=== PATIENT | male | born 1980 | race Caucasian/White ===

== ENCOUNTER 2016-06-03 09:55 | Emergency (ER) ==
--- NOTE | 2016-06-03 10:23 | PROVIDER DOCUMENTATION ---
HPI-General Adult - General Source: patient, family - History of Present Illness -Gen Adult Nature of Presenting Problems: Reports sinus congestion and cough x 1 week. Reports chest wall pain upon coughing. Pt reports is a smoker. Denies n,v,f. Reports sinus pain. Location of Pain/Injury: reports: head Quality of Pain: reports: aching Severity: reports: moderate Onset/Duration: reports: 1 week ago Timing: reports: still present Similar Symptoms Previously?: No Recently seen or treated by another doctor?: No <Bridgett Guardado - Last Filed: 06/03/16 11:22> <Rebeka Chao - Last Filed: 06/03/16 12:22> - General Chief Complaint: Cold Symptoms Stated Complaint: SINUS PAIN/COUGH Time Seen by Provider: 06/03/16 10:23 Allergies/Adverse Reactions: Patient Allergies Allergy/AdvReac Type Severity Reaction Status Date / Time No Known Allergies Allergy Verified 06/03/16 10:13 Home Medications: Home Medication List Medication Instructions Recorded Confirmed Last Taken Type Ibuprofen [Motrin] 800 mg PO Q8H PRN PRN #7 tablet 10/03/14 06/03/16 06/02/16 Rx Guaifenesin/Dextromethorphan 10 ml PO BID #120 ml 06/03/16 Unknown Rx [Guaifenesin Dm Syrup] Ibuprofen 800 mg PO BID #20 tablet 06/03/16 Unknown Rx Sulfamethoxazole/Trimethoprim 1 each PO BID #20 tablet 06/03/16 Unknown Rx [Bactrim Ds Tablet] Review of Systems - Adult - REVIEW OF SYSTEMS - ADULT Constitutional: denies: chills, fever, fatique Eyes: reports: no symptoms reported Ears, Nose, Mouth & Throat: reports: sinus problem. denies: ear pain, throat pain Cardiovascular: reports: no symptoms reported Respiratory: reports: cough. denies: shortness of breath, wheezing Gastrointestinal: denies: abdominal pain, diarrhea, nausea Genitourinary: reports: no symptoms reported Musculoskeletal: reports: no symptoms reported Integumentary: reports: no symptoms reported Neurological: reports: no symptoms reported Psychiatric: reports: no symptoms reported Endocrine: reports: no symptoms reported Hematologic/Lymphatic: reports: no symptoms reported Allergic/Immunologic: reports: no symptoms reported All Other Systems: Reviewed and Negative <Bridgett Guardado - Last Filed: 06/03/16 11:22> Past History - Adult - PAST MEDICAL HISTORY-ADULT Review of Records: reports: Nursing Assessment Review, Medications Reviewed Major Childhood Illnesses: reports: denies history Genitourinary: reports: kidney stones - IMMUNIZATION STATUS Childhood Immunizations: See Nurse Assessment Flu Vaccine: See Nurse Assessment - SOCIAL HISTORY Smoking: cigarettes, less than 1 pack/day Provider spent 3-5 mins advising pt. on dangers of tobacco.: Discussed manners to quit use, and f/u contacts for add'l counseling. Substance Use: none/never <Bridgett Guardado - Last Filed: 06/03/16 11:22> - PAST MEDICAL HISTORY-ADULT Major Childhood Illnesses: reports: denies history Cardiovascular: reports: denies history Respiratory: reports: denies history Gastrointestinal: reports: denies history Obstetrical/Gynecological: reports: denies history Genitourinary: reports: kidney stones Musculoskeletal: reports: denies history Neurological: reports: denies history Endocrine/Immune: reports: denies history Other Conditions: reports: denies history - PRIOR SURGERIES/PROCEDURES Surgical/Procedure History: reports: reviewed, not pertinent, other (renal stents) - PRIOR HOSPITALIZATIONS Prior Hospitalizations: reports: for other non-related - IMMUNIZATION STATUS Childhood Immunizations: See Nurse Assessment Flu Vaccine: See Nurse Assessment - FAMILY HISTORY Family History: reviewed, not pertinent <Rebeka Chao - Last Filed: 06/03/16 12:22> Physical Exam-General - PHYSICAL EXAM-ADULT Initial Vital Signs Reviewed: Yes - CONSTITUTIONAL General Appearance: appears well, alert, no apparent distress - EYES Eyes: PERRL/EOMI, pink conjunctivae - HEAD, EARS, NOSE, MOUTH & THROAT HENMT: normocephalic/atraumatic, moist mucous membranes, pharyngeal erythema ( with post-nasal drainage), frontal tenderness, maxillary tenderness. negative: tonsillar exudate - NECK Neck: non-tender, full range of motion, supple. negative: lymphadenopathy - RESPIRATORY Respiratory: chest non-tender, lungs clear, normal breath sounds - CARDIOVASCULAR Cardiovascular: normal peripheral pulses, regular rate, rhythm, no edema - MUSCULOSKELETAL Back Exam: normal inspection, no CVA tenderness, no vertebral tenderness Extremity: normal gait, normal inspection - SKIN Integumentary: normal color, normal turgor, warm/dry - NEUROLOGIC Neurologic: grossly normal, no motor/sensory deficits - PSYCHIATRIC Psych/Mental Status: normal mood/affect, oriented x 3 <Rebeka ChaoLaura - Last Filed: 06/03/16 12:22> Progress - PLAN OF CARE/RESULTS Progress/Plan/Lab Results: Vital Signs Temp Pulse Resp BP Pulse Ox 06/03/16 10:10 98.2 F 80 20 126/80 100 No Known Allergies Allergy (Verified 06/03/16 10:13) Ibuprofen [Motrin] 800 mg PO Q8H PRN PRN #7 tablet 10/03/14 Orders Category Date Time Status CHEST-2 VIEWS [RAD] Stat Exams 06/03/16 11:30 Ordered - XRAY 1 XRAY Study: Chest Impression: Normal XRAY Interpretation: normal per [facility] <TroyWilliam samuelscy JazminLaura - Last Filed: 06/03/16 12:22> Departure <Bridgett Guardado - Last Filed: 06/03/16 11:22> - Departure Time of Disposition Order: 12:18 Certified Medical Emergency: Emergent <JeremieWilliamRebeka M. - Last Filed: 06/03/16 12:22> - Departure DIAGNOSIS: Costochondritis Sinusitis Qualifiers: Sinusitis location: maxillary Chronicity: acute Recurrence: non-recurrent Qualified Code(s): J01.00 - Acute maxillary sinusitis, unspecified Upper respiratory infection Qualifiers: URI type: unspecified URI Qualified Code(s): J06.9 - Acute upper respiratory infection, unspecified Disposition: HOME 01 Condition: Good Additional Instructions: Drink plenty of fluids. ED Follow Up Instructions: You have been treated by a care provider in the Emergency Department. These instructions are being provided to you so you can have an understanding of how to care for yourself upon discharge. Upon discharge from the Emergency Department, you are responsible for making arrangements for follow-up care by a physician of your choice. Take all prescribed medications as directed. Return to the Emergency Department immediately for any new or worsening symptoms. You may call the Physician Referral phone number at [phone] to obtain a list of Physicians who are taking new patients. Prescriptions: Sulfamethoxazole/Trimethoprim [Bactrim Ds Tablet] 1 each PO BID #20 tablet Guaifenesin/Dextromethorphan [Guaifenesin Dm Syrup] 10 ml PO BID #120 ml Ibuprofen 800 mg PO BID #20 tablet Referrals: None,PCP [Primary Care Provider] - Mikael Walters MD [STAFF PHYSICIAN] - Attestation - Scribe Verification/Attestation Scribe:: Bridgett Guardado Acting as Scribe for:: Rebeka Chao Scribe documention review:: This chart was documented by a scribe and accurately reflects the service the provider performed and the decisions made by the provider. <Bridgett Guardado - Last Filed: 06/03/16 11:22> - Physician/ RUSS Attestation Patient care was provided by Advanced Practice Provider:: Yes Advanced Practice Provider:: Rebeka Chao Advanced Practice Provider documentation review:: The Mid-level provider documentation, treatment plan and medical decision making was reviewed by the physician who agrees with all treatment and medical decision making by the MLP. <Rebeka Chao - Last Filed: 06/03/16 12:22> Physician Attestation
--- NOTE | 2016-06-03 12:02 | Diag Imaging Result Document ---
PROCEDURE NAME: CHEST-2 VIEWS - 06/03/2016 FRONTAL AND LATERAL CHEST, TWO VIEWS: COMPARISON: Compared to 12/31/2011. FINDINGS: The lungs are well expanded. The heart is not enlarged. There are no infiltrates. No pleural effusions. No consolidation. IMPRESSION: No pneumonia.
[2016-06-03 12:31] VITALS: BP 123/77
== END 2016-06-03 12:32 | disposition home or self-care (01) ==
LOC: P.ED 09:55
DX: M94.0 Chondrocostal junction syndrome [Tietze] (principal); J01.00 Acute maxillary sinusitis, unspecified; J06.9 Acute upper respiratory infection, unspecified; R05 Cough; F17.210 Nicotine dependence, cigarettes, uncomplicated; Z71.6 Tobacco abuse counseling
CPT/HCPCS: 71020; 99283